=== PATIENT | male | born 1980 | race Caucasian/White ===

== ENCOUNTER 2016-08-24 13:22 | Emergency (ER) | payer OTHER ==
[~2016-08-24] VITALS: Ht 180.3 cm; Wt 107.0 kg
[~2016-08-24 13:22] MED LIST: ALBUTEROL SULF8.5 GM IH; AMITRIPTYLINE H10 MG PO; AUGMENTIN875 MG PO; CEFDINIR300 MG PO; CLINDAMYCIN HC300 MG PO; DAILY VALUE1 EACH PO; ENDOCET 5-3251 EACH PO; FIORICET 50-301 EACH PO; FLEXERIL10 MG PO; FLEXERIL5 MG PO; IBUPROFEN600 MG PO; IBUPROFEN800 MG PO; INDOCIN25 MG PO; INDOCIN50 MG PO; LORTAB 5-325 M1 EACH PO; MOTRIN800 MG PO; MUCINEX D ER T1 EACH PO; NAPROSYN500 MG PO; NAPROXEN500 MG PO; NASONEX17 GM BOTH NARES; NORCO 5/3251 TABLET PO; OMEPRAZOLE20 M2 PO; OMEPRAZOLE20 MG PO; OMEPRAZOLE40 M1 PO; PREDNISONE20 MG PO; PREDNISONE50 MG PO; TESSALON PERLE100 MG PO; TRAMADOL HCL50 MG PO; VALIUM10 MG PO; VALIUM5 MG PO; ZOFRAN4 MG PO
[2016-08-24 14:47] LABS: EOSINOPHIL (%) 3.3 % (0-5); EOSINOPHIL COUNT 0.2 K/uL (0-0.3); HEMATOCRIT 43.8 % (38.0-50.0); INSTRUMENT ABS NEUTROPHIL CT 2.9 K/uL; LYMPHOCYTE COUNT 2.5 K/uL (1.0-2.8); MCH 29.9 PG (29.0-34.0); MCHC 33.6 G/DL (30.0-36.0); MCV 89.2 FL (86-99); MONOCYTE (%) 4.5 % (3-12); MONOCYTE COUNT 0.3 K/uL (0-0.8); NEUTROPHIL (%) 49.7 % (45-76); NEUTROPHIL COUNT 2.9 K/uL (1.8-6.4); PLATELET COUNT 230 K/uL (156-360); RBC DIS.WIDTH-CV 13.3 % (11.8-14.6); RBC DIS.WIDTH-SD 43.7 % (39-53); RED BLOOD COUNT 4.91 M/uL (4.00-5.50); WHITE BLOOD COUNT 5.8 K/uL (4.1-10.2)
[2016-08-24 15:02] LABS: CHLORIDE 108 mEq/L (99-109); SODIUM 142 mEq/L (136-147)
[2016-08-24 15:04] LABS: GLUCOSE 90 mg/dL (70-99)
[2016-08-24 15:06] LABS: ANION GAP 9 MEQ/L (2-14); TOTAL BILIRUBIN 0.7 mg/dL (0.0-1.0)
[2016-08-24 15:08] LABS: ALKALINE PHOSPHATASE 60 IU/L (3-129); GFR ESTIMATE (CALCULATED) > 59 mL/min/
[2016-08-24 15:09] LABS: UREA NITROGEN (BUN) 7 mg/dL (9-23)
[2016-08-24 15:48] LABS: TROP-I INTERPRETATION NEGATIVE; TROPONIN-I < 0.01 ng/mL (0.0-0.30)
[2016-08-24 17:44] LABS: TROP-I INTERPRETATION NEGATIVE; TROPONIN-I < 0.01 ng/mL (0.0-0.30)
[2016-08-24] MEDS ORDERED: ZITHROMAX250 MG PO (18:02)
[2016-08-24] MEDS ORDERED: DOXYCYCLINE HY100 MG PO (18:02)
[2016-08-24] MEDS ORDERED: PERCOCET 5/31 TABLET PO (18:02)
[2016-08-24 18:28] VITALS: BP 134/94
== END 2016-08-24 18:40 | disposition home or self-care (01) ==
LOC: EME 13:22
PROVIDERS: Emergency Medicine; Physician Assistant
DX: J18.9 Pneumonia, unspecified organism (principal); M54.9 Dorsalgia, unspecified; R07.9 Chest pain, unspecified; K21.9 Gastro-esophageal reflux disease without esophagitis
CPT/HCPCS: 71275; 80053; 83605; 84484; 85025; 87040; 93005; 99281; 99285; J0456; J0696; J3010; J7040; J7050

== ENCOUNTER 2016-11-27 17:56 | Emergency (ER) | payer OTHER ==
[~2016-11-27] VITALS: Ht 180.3 cm; Wt 105.1 kg
[~2016-11-27 17:56] MED LIST changes: +DOXYCYCLINE HY100 MG PO; +PERCOCET 5/31 TABLET PO; +ZITHROMAX250 MG PO
[2016-11-27 18:05] VITALS: BP 151/94
[2016-11-27 18:31] LABS: HEMATOCRIT 46.4 % (38.0-50.0); MCH 30.5 PG (29.0-34.0); MCHC 34.3 G/DL (30.0-36.0); MCV 89.1 FL (86-99); MEAN PLAT.VOLUME 10.4 uM^3 (9.0-12.4); PLATELET COUNT 216 K/uL (156-360); RBC DIS.WIDTH-CV 13.5 % (11.8-14.6); RBC DIS.WIDTH-SD 43.8 % (39-53); RED BLOOD COUNT 5.21 M/uL (4.00-5.50); WHITE BLOOD COUNT 9.9 K/uL (4.1-10.2)
[2016-11-27 18:48] LABS: CHLORIDE 106 mEq/L (99-109); POTASSIUM 4.2 mEq/L (3.7-5.4); SODIUM 141 mEq/L (136-147)
[2016-11-27 18:51] LABS: GLUCOSE 109 mg/dL (70-99)
[2016-11-27 18:52] LABS: ANION GAP 9 MEQ/L (2-14)
[2016-11-27 18:53] LABS: TOTAL BILIRUBIN 0.9 mg/dL (0.0-1.0)
[2016-11-27 18:54] LABS: ALKALINE PHOSPHATASE 98 IU/L (3-129); GFR ESTIMATE (CALCULATED) > 59 mL/min/
[2016-11-27 18:57] LABS: UREA NITROGEN (BUN) 14 mg/dL (9-23)
[2016-11-27 18:58] LABS: LIPASE 46 U/L (1.0-51.0)
== END 2016-11-27 20:00 | disposition left against medical advice (07) ==
LOC: EME 17:56
DX: R10.9 Unspecified abdominal pain (principal); Z53.21 Procedure and treatment not carried out due to patient leaving prior to being seen by health care provider
CPT/HCPCS: 80053; 81003; 83690; 85027

== ENCOUNTER 2017-02-22 20:48 | Emergency (ER) | payer OTHER, BC ==
[~2017-02-22] VITALS: Ht 180.3 cm; Wt 107.0 kg
[2017-02-22 22:19] VITALS: BP 00/0
[2017-02-22 22:34] LABS: ADD MIUA? NO; BILIRUBIN NEGATIVE; BLOOD NEGATIVE; COLOR STRAW ((YELLOW)); GLUCOSE (STRIP) NEGATIVE; KETONES NEGATIVE; LEUKOCYTES NEGATIVE; NITRITE NEGATIVE; PROTEIN (STRIP) NEGATIVE; UROBILINOGEN 0.2 MG/DL (0.2-1.0)
== END 2017-02-22 23:52 | disposition home or self-care (01) ==
LOC: RME 20:48 → EME 20:48 → RME 23:52
PROVIDERS: Nurse Practitioner Family
DX: M54.5 Low back pain (principal); K21.9 Gastro-esophageal reflux disease without esophagitis; Z87.891 Personal history of nicotine dependence
CPT/HCPCS: 81003; 99281; 99284; J1885

== ENCOUNTER 2017-06-28 12:50 | Emergency (ER) | payer BC ==
[~2017-06-28] VITALS: Ht 180.3 cm; Wt 103.3 kg
[2017-06-28 13:57] VITALS: BP 122/78
== END 2017-06-28 13:58 | disposition home or self-care (01) ==
LOC: EME 12:50
DX: K64.9 Unspecified hemorrhoids (principal)
CPT/HCPCS: 99281; 99283

== ENCOUNTER 2017-09-18 22:15 | Emergency (ER) | payer BC ==
[~2017-09-18] VITALS: Ht 180.3 cm; Wt 100.5 kg
[2017-09-18 22:36] LABS: HEMATOCRIT 44.8 % (38.0-50.0); HEMOGLOBIN 15.6 G/DL (12.5-16.6); MCHC 34.8 G/DL (30.0-36.0); MCV 89.1 FL (86-99); PLATELET COUNT 267 K/uL (156-360); RBC DIS.WIDTH-CV 13.4 % (11.8-14.6); RBC DIS.WIDTH-SD 43.8 % (39-53); RED BLOOD COUNT 5.03 M/uL (4.00-5.50); WHITE BLOOD COUNT 12.1 K/uL (4.1-10.2)
[2017-09-18 22:45] LABS: CHLORIDE 104 mEq/L (99-109)
[2017-09-18 22:46] LABS: POTASSIUM 3.6 mEq/L (3.7-5.4); SODIUM 144 mEq/L (136-147)
[2017-09-18 22:47] LABS: GLUCOSE 97 mg/dL (70-99)
[2017-09-18 22:51] LABS: CREATININE 1.2 mg/dL (0.6-1.3); GFR ESTIMATE (CALCULATED) > 59 mL/min/ (58.99-99999)
[2017-09-18 22:52] LABS: UREA NITROGEN (BUN) 10 mg/dL (9-23)
[2017-09-18 22:57] LABS: TROP-I INTERPRETATION NEGATIVE; TROPONIN-I 0.01 ng/mL (0.0-0.30)
[2017-09-19 01:46] LABS: D-DIMER ELISA < 150.00 ng/mLDDU (<230)
[2017-09-19 02:05] LABS: TROP-I INTERPRETATION NEGATIVE; TROPONIN-I < 0.01 ng/mL (0.0-0.30)
[2017-09-19] MEDS ORDERED: LIDODERM 5% P1 PATCH TD (02:15)
[2017-09-19] MEDS ORDERED: ULTRAM50 MG PO (02:15)
[2017-09-19 03:53] VITALS: BP 124/77
== END 2017-09-19 03:54 | disposition home or self-care (01) ==
LOC: EME 22:15
PROVIDERS: Emergency Medicine
DX: R07.89 Other chest pain (principal); J20.9 Acute bronchitis, unspecified; K21.9 Gastro-esophageal reflux disease without esophagitis; G43.909 Migraine, unspecified, not intractable, without status migrainosus; J30.1 Allergic rhinitis due to pollen; J30.81 Allergic rhinitis due to animal (cat) (dog) hair and dander
CPT/HCPCS: 71046; 80048; 84484; 85027; 85379; 93005; 94640; 99281; 99284

== ENCOUNTER 2017-11-29 22:06 | Emergency (ER) | payer OTHER, BC ==
[~2017-11-29] VITALS: Ht 180.3 cm; Wt 99.0 kg
[~2017-11-29 22:06] MED LIST changes: +LIDODERM 5% P1 PATCH TD; +ULTRAM50 MG PO
[2017-11-29 23:32] VITALS: BP 149/93
== END 2017-11-29 23:33 | disposition home or self-care (01) ==
LOC: EME 22:06
DX: S90.31XA Contusion of right foot, initial encounter (principal); W23.1XXA Caught, crushed, jammed, or pinched between stationary objects, initial encounter; Y93.89 Activity, other specified; Y92.812 Truck as the place of occurrence of the external cause; Y99.0 Civilian activity done for income or pay
CPT/HCPCS: 73630; 99281; 99283